=== PATIENT | male | born 1950 | race Caucasian/White ===

== ENCOUNTER 2019-10-20 07:56 | Observation (INO) ==
[2019-10-20] MEDS ORDERED: Ondansetron 4 MG/2 ML VIAL IVP ONE (08:26)
[2019-10-20] MEDS ORDERED: GI Cocktail 40 ML EACH PO ONE (09:03)
[2019-10-20 09:08] LABS: Red Cell Distribution Width 15.3 % (11.5-14.5)
[2019-10-20 09:09] LABS: Hematocrit 21.5 % (37.5-50.1); Hemoglobin 7.2 g/dL (12.9-16.9); Lymphocytes # 0.6 K/mcL (0.6-4.6); Mean Corpuscular HGB Conc 33.5 g/dL (31.6-35.5); Mean Corpuscular Hemoglobin 30.9 pg (28.0-33.3); Mean Corpuscular Volume 92.3 fL (83.0-100.0); Mean Platelet Volume 9.6 fL (9.4-12.4); Monocytes # 0.1 K/mcL (0.0-1.3); Platelet Count 223 K/mcL (140-400); Red Blood Count 2.33 M/mcL (4.19-5.50)
[2019-10-20 09:16] LABS: White Blood Count 0.8 K/mcL (4.3-11.1)
[2019-10-20 09:20] LABS: INR 1.2; Prothrombin Time 13.6 Seconds (9.4-12.1)
[2019-10-20 09:23] LABS: Activated Partial Thrombo Time 41.5 Seconds (26.0-36.0)
[2019-10-20 09:39] LABS: Albumin 2.9 g/dL (3.5-5.7); Albumin/Globulin Ratio 0.8 (1.1-2.2); Bilirubin,Direct 0.2 mg/dL (0.0-0.2); Bilirubin,Indirect 0.3 mg/dL (0.0-1.0); Bilirubin,Total 0.5 mg/dL (0.3-1.0); Globulin 3.6 g/dL (2.4-3.5); Total Protein 6.5 g/dL (6.4-8.9)
[2019-10-20 09:43] LABS: BUN/Creatinine Ratio 13 (6-26); Blood Urea Nitrogen 9 mg/dL (8-23); Calcium 8.9 mg/dL (8.6-10.3); Carbon Dioxide 24 mEq/L (23-29); Chloride 96 mEq/L (98-107); Glucose 137 mg/dL (70-105); Osmolality,Calculated 273 (280-300); Potassium 3.2 mEq/L (3.5-5.1); Sodium 131 mEq/L (136-145); Troponin I < 0.03 ng/mL (< 0.04); eGFR For African Americans > 60 (> 60); eGFR For Non-African Americans > 60 (> 60)
[2019-10-20 09:48] LABS: Neutrophils # 0.2 K/mcL (1.6-8.9)
[2019-10-20 09:49] LABS: Anisocytosis 1+ (Not Present); Microcytosis Present (Not Present); Platelet Estimate Normal (Normal)
[2019-10-20] MEDS ORDERED: 0.9 % Sodium Chloride 250 ML ONE (11:25)
[2019-10-20] MEDS ORDERED: *HR* Promethazine 25 MG/ML VIAL IVP PRN (13:21)
[2019-10-20] MEDS ORDERED: *HR* OxyCODONE/APAP 5/325 TABLET PO PRN (13:22)
[2019-10-20] MEDS ORDERED: Ondansetron 4 MG/2 ML VIAL IVP PRN (13:22)
[2019-10-20] MEDS ORDERED: Aspirin 325 MG TABLET PO ONE (13:59)
[2019-10-20] MEDS: Pantoprazole 40 MG VIAL IVP SCH (15:02)
[2019-10-20] MEDS: 0.9 % Sodium Chloride 1,000 ML IVC SCH ×2 (15:04→23:51)
[2019-10-20 17:36] LABS: % Iron Saturation 9 % (20-55); Iron 20 mcg/dL (65-175); Transferrin 155 mg/dL (203-362)
[2019-10-20 18:01] LABS: Folate 19.3 ng/mL (3.0-16.0)
[2019-10-21 01:27] LABS: Adenovirus Not Detected (Not Detect); Bordetella Pertussis Not Detected (Not Detect); Chlamydophila pneumoniae Not Detected (Not Detect); Coronavirus 229E Not Detected (Not Detect); Coronavirus HKU1 Not Detected (Not Detect); Coronavirus NL63 Not Detected (Not Detect); Coronavirus OC43 Not Detected (Not Detect); Human Metapneumovirus Not Detected (Not Detect); Human Rhinovirus/Enterovirus Not Detected (Not Detect); Influenza A Subtype 2009 H1 Not Detected (Not Detect); Influenza B Not Detected (Not Detect); Mycoplasma pneumoniae Not Detected (Not Detect); Parainfluenza Virus 1 Not Detected (Not Detect); Parainfluenza Virus 2 Not Detected (Not Detect); Parainfluenza Virus 3 Not Detected (Not Detect); Parainfluenza Virus 4 Not Detected (Not Detect); Respiratory Syncytial Virus Not Detected (Not Detect)
[2019-10-21 04:56] LABS: Mean Platelet Volume 9.8 fL (9.4-12.4); Red Cell Distribution Width 17.6 % (11.5-14.5); White Blood Count 1.1 K/mcL (4.3-11.1)
[2019-10-21 04:57] LABS: Basophils % 0.9 %; Eosinophils % 3.6 %; Hematocrit 22.6 % (37.5-50.1); Hemoglobin 7.2 g/dL (12.9-16.9); Lymphocytes # 0.7 K/mcL (0.6-4.6); Lymphocytes % 60.7 %; Mean Corpuscular HGB Conc 31.9 g/dL (31.6-35.5); Mean Corpuscular Hemoglobin 29.5 pg (28.0-33.3); Mean Corpuscular Volume 92.6 fL (83.0-100.0); Monocytes # 0.1 K/mcL (0.0-1.3); Monocytes % 9.8 %; Neutrophils # 0.3 K/mcL (1.6-8.9); Platelet Count 148 K/mcL (140-400); Red Blood Count 2.44 M/mcL (4.19-5.50)
[2019-10-21 05:14] LABS: BUN/Creatinine Ratio 12 (6-26); Blood Urea Nitrogen 8 mg/dL (8-23); Calcium 8.2 mg/dL (8.6-10.3); Carbon Dioxide 22 mEq/L (23-29); Chloride 106 mEq/L (98-107); Glucose 93 mg/dL (70-105); Osmolality,Calculated 278 (280-300); Potassium 3.6 mEq/L (3.5-5.1); Sodium 135 mEq/L (136-145); eGFR For African Americans > 60 (> 60); eGFR For Non-African Americans > 60 (> 60)
[2019-10-21 05:19] LABS: Anisocytosis 1+ (Not Present); Microcytosis Present (Not Present); Poikilocytosis 1+ (Not Present); Polychromasia 1+ (Not Present)
[2019-10-21 05:20] LABS: Platelet Estimate Normal (Normal)
[2019-10-21] MEDS: Pantoprazole 40 MG VIAL IVP SCH (06:01)
[2019-10-21 07:01] VITALS: BP 99/60
[2019-10-21] MEDS ORDERED: Aspirin 81 MG TAB.CHEW PO SCH (09:00)
== END 2019-10-21 11:20 | disposition home or self-care (01) ==
LOC: EMEROOARM 07:56 → 3BNU 07:56 → SUATTDRO 10:30 → 3BNU 12:29
PROVIDERS: ADMIT Internal Medicine; ATTEND Internal Medicine

== ENCOUNTER 2019-11-08 23:35 | Inpatient (IN) ==
[2019-11-09 00:40] LABS: Hematocrit 31.8 % (37.5-50.1); Hemoglobin 10.5 g/dL (12.9-16.9); Mean Corpuscular Volume 87.8 fL (83.0-100.0); Mean Platelet Volume 10.7 fL (9.4-12.4); Platelet Count 269 K/mcL (140-400); Red Blood Count 3.62 M/mcL (4.19-5.50); Red Cell Distribution Width 17.9 % (11.5-14.5); White Blood Count 6.1 K/mcL (4.3-11.1)
[2019-11-09] MEDS ORDERED: Isovue-370 500 ML BOTTLE IVP ONE (00:55)
[2019-11-09 00:56] LABS: Alanine Aminotransferase 7 Units/L (7-52); Albumin 2.3 g/dL (3.5-5.7); Albumin/Globulin Ratio 0.7 (1.1-2.2); Alkaline Phosphatase 126 Units/L (34-104); Aspartate Amino Transferase 8 Units/L (13-39); BUN/Creatinine Ratio 46 (6-26); Bilirubin,Total 0.5 mg/dL (0.3-1.0); Blood Urea Nitrogen 46 mg/dL (8-23); Calcium 8.2 mg/dL (8.6-10.3); Carbon Dioxide 18 mEq/L (23-29); Chloride 92 mEq/L (98-107); Globulin 3.3 g/dL (2.4-3.5); Glucose 129 mg/dL (70-105); Osmolality,Calculated 272 (280-300); Potassium 3.7 mEq/L (3.5-5.1); Sodium 124 mEq/L (136-145); Total Protein 5.6 g/dL (6.4-8.9); eGFR For African Americans > 60 (> 60); eGFR For Non-African Americans > 60 (> 60)
[2019-11-09] MEDS ORDERED: 0.9 % Sodium Chloride 1,000 ML IVC ONE (00:57)
[2019-11-09 01:22] LABS: Bilirubin,Urine Small (Negative); Blood,Urine Negative (Negative); Clarity,Urine Clear (Clear); Color,Urine Red (Yellow); Glucose,Urine (UA) Normal (Normal); Ketones,Urine Trace mg/dL (Negative); Leukocyte Esterase,Urine Trace (Negative); Nitrite,Urine Negative (Negative); PH,Urine 5.5 pH Units (5.0-8.0); Protein,Urine 30 mg/dL (Neg-Trace); Specific Gravity,Urine 1.026 (1.010-1.025); Urobilinogen,Urine Normal (Normal)
[2019-11-09 01:23] LABS: Bacteria,Urine None Seen per hpf (None-Few); Hyaline Casts,Urine None Seen per lpf (None-Few); Squamous Epithelial Cell,Urine Moderate per lpf (None-Few); WBC,Urine 0-3 per hpf (0-3)
[2019-11-09 01:28] LABS: Anisocytosis 1+ (Not Present); Large Platelets Present (Not Present); Lymphocytes # 2.4 K/mcL (0.6-4.6); Neutrophils # 3.7 K/mcL (1.6-8.9); Platelet Estimate Normal (Normal); Reactive Lymphocytes Present (Not Present)
[2019-11-09 06:44] LABS: BUN/Creatinine Ratio 48 (6-26); Blood Urea Nitrogen 43 mg/dL (8-23); Calcium 7.7 mg/dL (8.6-10.3); Carbon Dioxide 17 mEq/L (23-29); Chloride 95 mEq/L (98-107); Glucose 137 mg/dL (70-105); Osmolality,Calculated 275 (280-300); Potassium 3.6 mEq/L (3.5-5.1); Sodium 126 mEq/L (136-145); eGFR For African Americans > 60 (> 60); eGFR For Non-African Americans > 60 (> 60)
[2019-11-09] MEDS ORDERED: Naloxone 0.4 MG/ML INJ IVP PRN (07:18)
[2019-11-09] MEDS ORDERED: Ondansetron 4 MG/2 ML VIAL IVP PRN (07:18)
[2019-11-09] MEDS ORDERED: 0.9 % Sodium Chloride 1,000 ML IVC SCH ×2 (07:30→12:58)
[2019-11-09 07:50] LABS: Troponin I < 0.03 ng/mL (< 0.04)
[2019-11-09] MEDS ORDERED: Potassium Chloride 40 MEQ, Lidocaine 1% 2 ML in 0.9 % Sodium Chloride 500 ML IVPB ONE (08:46)
[2019-11-09] MEDS ORDERED: Ketorolac 15 MG/ML VIAL IVP PRN (08:47)
[2019-11-09 10:18] LABS: Creatinine,Urine 72 mg/dL; Sodium, Urine < 10.0 mEq/L
[2019-11-09 12:25] LABS: BUN/Creatinine Ratio 45 (6-26); Blood Urea Nitrogen 39 mg/dL (8-23); Calcium 7.5 mg/dL (8.6-10.3); Carbon Dioxide 15 mEq/L (23-29); Chloride 99 mEq/L (98-107); Glucose 145 mg/dL (70-105); Magnesium 1.4 mg/dL (1.6-2.6); Osmolality,Calculated 280 (280-300); Potassium 4.3 mEq/L (3.5-5.1); Sodium 129 mEq/L (136-145); eGFR For African Americans > 60 (> 60); eGFR For Non-African Americans > 60 (> 60)
[2019-11-09 16:52] LABS: BUN/Creatinine Ratio 48 (6-26); Blood Urea Nitrogen 39 mg/dL (8-23); Calcium 7.6 mg/dL (8.6-10.3); Carbon Dioxide 15 mEq/L (23-29); Chloride 101 mEq/L (98-107); Glucose 170 mg/dL (70-105); Osmolality,Calculated 283 (280-300); Potassium 4.3 mEq/L (3.5-5.1); Sodium 130 mEq/L (136-145); eGFR For African Americans > 60 (> 60); eGFR For Non-African Americans > 60 (> 60)
[2019-11-09] MEDS: *HR* Heparin 5,000 UNIT/ML VIAL SQ SCH (17:29)
[2019-11-09] MEDS ORDERED: D5% in 0.45% NACL 1,000 ML IVC SCH (17:45)
[2019-11-09 20:15] LABS: BUN/Creatinine Ratio 45 (6-26); Blood Urea Nitrogen 37 mg/dL (8-23); Calcium 7.6 mg/dL (8.6-10.3); Carbon Dioxide 14 mEq/L (23-29); Chloride 101 mEq/L (98-107); Glucose 216 mg/dL (70-105); Osmolality,Calculated 289 (280-300); Potassium 4.1 mEq/L (3.5-5.1); Sodium 132 mEq/L (136-145); eGFR For African Americans > 60 (> 60); eGFR For Non-African Americans > 60 (> 60)
[2019-11-10 01:05] LABS: BUN/Creatinine Ratio 44 (6-26); Blood Urea Nitrogen 39 mg/dL (8-23); Calcium 7.5 mg/dL (8.6-10.3); Carbon Dioxide 17 mEq/L (23-29); Chloride 103 mEq/L (98-107); Glucose 210 mg/dL (70-105); Magnesium 2.3 mg/dL (1.6-2.6); Osmolality,Calculated 292 (280-300); Phosphorous 1.8 mg/dL (2.7-4.5); Potassium 3.7 mEq/L (3.5-5.1); Sodium 133 mEq/L (136-145); eGFR For African Americans > 60 (> 60); eGFR For Non-African Americans > 60 (> 60)
[2019-11-10] MEDS ORDERED: *HR* LORazepam 2 MG/ML VIAL IVP ONE ×2 (02:29→12:30)
[2019-11-10 05:07] LABS: Basophils # 0.1 K/mcL (0.0-0.2); Basophils % 1.3 %; Eosinophils % 0.2 %; Hemoglobin 9.6 g/dL (12.9-16.9); Immature Granulocytes % 9.8 % (0-4); Lymphocytes # 1.3 K/mcL (0.6-4.6); Lymphocytes % 21.1 %; Mean Corpuscular Hemoglobin 29.1 pg (28.0-33.3); Mean Corpuscular Volume 90.9 fL (83.0-100.0); Mean Platelet Volume 10.8 fL (9.4-12.4); Monocytes # 0.9 K/mcL (0.0-1.3); Neutrophils # 3.3 K/mcL (1.6-8.9); Platelet Count 309 K/mcL (140-400); Red Cell Distribution Width 18.5 % (11.5-14.5); Segmented Neutrophils % 52.6 %; White Blood Count 6.2 K/mcL (4.3-11.1)
[2019-11-10 05:25] LABS: BUN/Creatinine Ratio 46 (6-26); Blood Urea Nitrogen 41 mg/dL (8-23); Calcium 7.4 mg/dL (8.6-10.3); Carbon Dioxide 19 mEq/L (23-29); Chloride 105 mEq/L (98-107); Glucose 178 mg/dL (70-105); Osmolality,Calculated 293 (280-300); Potassium 3.6 mEq/L (3.5-5.1); Sodium 134 mEq/L (136-145); eGFR For African Americans > 60 (> 60); eGFR For Non-African Americans > 60 (> 60)
[2019-11-10] MEDS: *HR* Heparin 5,000 UNIT/ML VIAL SQ SCH ×2 (05:39→22:50)
[2019-11-10 06:07] LABS: Anisocytosis 1+ (Not Present); Platelet Estimate Normal (Normal); Poikilocytosis 1+ (Not Present); Reactive Lymphocytes Present (Not Present)
[2019-11-10 08:45] LABS: Bilirubin,Urine Small (Negative); Blood,Urine Negative (Negative); Clarity,Urine Clear (Clear); Color,Urine Dark Yellow (Yellow); Glucose,Urine (UA) Normal (Normal); Ketones,Urine 15 mg/dL (Negative); Leukocyte Esterase,Urine Trace (Negative); Nitrite,Urine Negative (Negative); PH,Urine 5.5 pH Units (5.0-8.0); Protein,Urine 30 mg/dL (Neg-Trace); Specific Gravity,Urine > 1.030 (1.010-1.025); Urobilinogen,Urine Normal (Normal)
[2019-11-10 08:47] LABS: Bacteria,Urine None Seen per hpf (None-Few); Hyaline Casts,Urine None Seen per lpf (None-Few); Squamous Epithelial Cell,Urine Many per lpf (None-Few); WBC,Urine 0-3 per hpf (0-3)
[2019-11-10 08:49] LABS: BUN/Creatinine Ratio 49 (6-26); Blood Urea Nitrogen 42 mg/dL (8-23); Calcium 7.2 mg/dL (8.6-10.3); Carbon Dioxide 19 mEq/L (23-29); Chloride 106 mEq/L (98-107); Glucose 177 mg/dL (70-105); Osmolality,Calculated 293 (280-300); Potassium 3.4 mEq/L (3.5-5.1); Sodium 134 mEq/L (136-145); eGFR For African Americans > 60 (> 60); eGFR For Non-African Americans > 60 (> 60)
[2019-11-10] MEDS ORDERED: Ringers Solution, Lactated 1,000 ML IVC SCH (10:30)
[2019-11-10] MEDS: Ringers Solution, Lactated 1,000 ML IVC SCH (11:28)
[2019-11-10] MEDS ORDERED: Pantoprazole 40 MG VIAL IVP SCH (11:30)
[2019-11-10] MEDS ORDERED: Lidocaine -MPF 1% 5 ML AMPUL INFILT ONE (11:43)
[2019-11-10] MEDS ORDERED: D10% in Water 500 ML IVC PRN (12:17)
[2019-11-10] MEDS ORDERED: Haloperidol Lactate 5 MG/ML VIAL IVP PRN (12:24)
[2019-11-10] MEDS ORDERED: *HR* Dextrose 50 % in Water (Syg) 50 ML SYRINGE IVP PRN (12:44)
[2019-11-10] MEDS ORDERED: D5% in Water 1,000 ML IVC PRN (12:44)
[2019-11-10] MEDS ORDERED: Dextrose Gel 15 GM/37.5 ML TUBE PO PRN ×2 (12:44)
[2019-11-10] MEDS ORDERED: Clinimix E 5%-15% SOLUTION 2,000 ML with MVI, adult with vitamin K 10 ML IVC SCH (17:00)
[2019-11-10] MEDS: Insulin LISPRO 300 UNITS/3 ML VIAL SQ SCH ×2 (18:27→22:46)
[2019-11-10] MEDS ORDERED: Lidocaine -MPF 2% 2 ML VIAL ONE (22:20)
[2019-11-10] MEDS ORDERED: *HR* Succinylcholine 200 MG/10 ML VIAL IVP ONE (22:20)
[2019-11-10] MEDS ORDERED: *HR* FentaNYL (PF) 100 MCG/2 ML VIAL ONE (22:20)
[2019-11-10] MEDS ORDERED: *HR* Rocuronium Bromide 50 MG/5 ML VIAL ONE (22:20)
[2019-11-11] MEDS ORDERED: *HR* Etomidate 40 MG/20 ML VIAL IVP ONE (00:05)
[2019-11-11] MEDS ORDERED: *HR* PHENYLEPHRINE 1,000 MCG/10 ML SYRINGE IVP ONE (00:14)
[2019-11-11] MEDS ORDERED: ceFAZolin 2,000 MG in 0.9 % Sodium Chloride 100 ML IVPB ONE ×2 (00:49→02:15)
[2019-11-11] MEDS ORDERED: *HR* HYDROmorphone (PF) 1 MG/ML SYRINGE IVP PRN (01:05)
[2019-11-11] MEDS ORDERED: *HR* Promethazine 25 MG/ML VIAL IVP PRN (01:05)
[2019-11-11] MEDS: Insulin LISPRO 300 UNITS/3 ML VIAL SQ SCH ×6 (02:10→21:46)
[2019-11-11] MEDS ORDERED: D5% in Water 1,000 ML IVC PRN (02:15)
[2019-11-11] MEDS ORDERED: D10% in Water 500 ML IVC PRN (02:15)
[2019-11-11] MEDS ORDERED: Clinimix E 5%-15% SOLUTION 2,000 ML with MVI, adult with vitamin K 10 ML IVC SCH (02:15)
[2019-11-11] MEDS ORDERED: Naloxone 0.4 MG/ML INJ IVP PRN (02:15)
[2019-11-11] MEDS ORDERED: *HR* Dextrose 50 % in Water (Syg) 50 ML SYRINGE IVP PRN (02:15)
[2019-11-11] MEDS ORDERED: Dextrose Gel 15 GM/37.5 ML TUBE PO PRN ×2 (02:15)
[2019-11-11] MEDS ORDERED: Ondansetron 4 MG/2 ML VIAL IVP PRN (02:15)
[2019-11-11] MEDS: Ringers Solution, Lactated 1,000 ML IVC SCH ×3 (02:59→16:15)
[2019-11-11 04:25] LABS: Hematocrit 27.6 % (37.5-50.1); Hemoglobin 8.8 g/dL (12.9-16.9); Mean Corpuscular HGB Conc 31.9 g/dL (31.6-35.5); Mean Corpuscular Hemoglobin 29.1 pg (28.0-33.3); Mean Corpuscular Volume 91.4 fL (83.0-100.0); Mean Platelet Volume 10.3 fL (9.4-12.4); Monocytes # 0.6 K/mcL (0.0-1.3); Nucleated Red Blood Cells 0.9 /100 WBC (0); Platelet Count 258 K/mcL (140-400); Red Blood Count 3.02 M/mcL (4.19-5.50); Red Cell Distribution Width 18.5 % (11.5-14.5); White Blood Count 5.6 K/mcL (4.3-11.1)
[2019-11-11 04:32] LABS: BUN/Creatinine Ratio 51 (6-26); Blood Urea Nitrogen 39 mg/dL (8-23); Calcium 7.4 mg/dL (8.6-10.3); Carbon Dioxide 20 mEq/L (23-29); Chloride 111 mEq/L (98-107); Glucose 211 mg/dL (70-105); Magnesium 1.6 mg/dL (1.6-2.6); Osmolality,Calculated 304 (280-300); Phosphorous 1.6 mg/dL (2.7-4.5); Potassium 3.6 mEq/L (3.5-5.1); Sodium 139 mEq/L (136-145); eGFR For African Americans > 60 (> 60); eGFR For Non-African Americans > 60 (> 60)
[2019-11-11 06:00] LABS: Anisocytosis 1+ (Not Present); Lymphocytes # 0.5 K/mcL (0.6-4.6); Microcytosis Present (Not Present); Neutrophils # 4.3 K/mcL (1.6-8.9); Platelet Estimate Normal (Normal)
[2019-11-11] MEDS: Pantoprazole 40 MG VIAL IVP SCH (06:23)
[2019-11-11] MEDS ORDERED: 0.9 % Sodium Chloride 500 ML IVC ONE (06:23)
[2019-11-11] MEDS: Thiamine (B-1) 100 MG in 0.9 % Sodium Chloride 50 ML IVPB SCH (12:55)
[2019-11-11 14:57] LABS: BUN/Creatinine Ratio 58 (6-26); Blood Urea Nitrogen 38 mg/dL (8-23); Calcium 7.1 mg/dL (8.6-10.3); Carbon Dioxide 20 mEq/L (23-29); Chloride 115 mEq/L (98-107); Glucose 183 mg/dL (70-105); Magnesium 2.1 mg/dL (1.6-2.6); Osmolality,Calculated 306 (280-300); Phosphorous 3.2 mg/dL (2.7-4.5); Potassium 4.1 mEq/L (3.5-5.1); Sodium 141 mEq/L (136-145); eGFR For African Americans > 60 (> 60); eGFR For Non-African Americans > 60 (> 60)
[2019-11-11] MEDS ORDERED: Clinimix E 5%-15% SOLUTION 2,000 ML with MVI, adult with vitamin K 10 ML, Trace Eleme... IVC SCH (17:00)
[2019-11-12] MEDS: Insulin LISPRO 300 UNITS/3 ML VIAL SQ SCH ×5 (01:05→16:43)
[2019-11-12] MEDS ORDERED: *HR* Promethazine 25 MG/ML VIAL IVP ONE (02:11)
[2019-11-12 04:55] LABS: Hematocrit 27.2 % (37.5-50.1); Hemoglobin 8.5 g/dL (12.9-16.9); Mean Corpuscular HGB Conc 31.3 g/dL (31.6-35.5); Mean Corpuscular Hemoglobin 29.1 pg (28.0-33.3); Mean Corpuscular Volume 93.2 fL (83.0-100.0); Mean Platelet Volume 10.8 fL (9.4-12.4); Nucleated Red Blood Cells 0.9 /100 WBC (0); Platelet Count 205 K/mcL (140-400); Red Blood Count 2.92 M/mcL (4.19-5.50); Red Cell Distribution Width 18.8 % (11.5-14.5); White Blood Count 6.8 K/mcL (4.3-11.1)
[2019-11-12 05:17] LABS: BUN/Creatinine Ratio 59 (6-26); Blood Urea Nitrogen 33 mg/dL (8-23); Carbon Dioxide 22 mEq/L (23-29); Chloride 116 mEq/L (98-107); Glucose 176 mg/dL (70-105); Magnesium 1.6 mg/dL (1.6-2.6); Osmolality,Calculated 306 (280-300); Potassium 3.9 mEq/L (3.5-5.1); Sodium 142 mEq/L (136-145); eGFR For African Americans > 60 (> 60); eGFR For Non-African Americans > 60 (> 60)
[2019-11-12] MEDS: Ringers Solution, Lactated 1,000 ML IVC SCH (05:39)
[2019-11-12] MEDS: Pantoprazole 40 MG VIAL IVP SCH (05:39)
[2019-11-12 05:41] LABS: Anisocytosis 1+ (Not Present); Monocytes # 0.3 K/mcL (0.0-1.3); Neutrophils # 5.6 K/mcL (1.6-8.9); Platelet Estimate Normal (Normal)
[2019-11-12] MEDS ORDERED: Calcium Gluconate 1gm/50mL 1 GM/50 ML BAG IVPB ONE (09:01)
[2019-11-12] MEDS ORDERED: methylPREDNISolone 125 MG/2 ML VIAL IVP ONE (09:05)
[2019-11-12] MEDS: Thiamine (B-1) 100 MG in 0.9 % Sodium Chloride 50 ML IVPB SCH (10:12)
[2019-11-12 10:17] LABS: VBG Ionized Calcium 1.14 mmol/L (1.15-1.35)
[2019-11-12 11:10] LABS: Estimated Average Glucose 123 mg/dl
[2019-11-12] MEDS ORDERED: Potassium Phosphate 44 MEQ in 0.9 % Sodium Chloride 250 ML IVPB ONE (11:19)
[2019-11-12] MEDS ORDERED: Clinimix E 5%-15% SOLUTION 2,000 ML with MVI, adult with vitamin K 10 ML, Trace Eleme... IVC SCH (17:00)
[2019-11-12] MEDS ORDERED: *HR* Metoprolol 5 MG/5 ML VIAL IVP ONE (23:21)
[2019-11-13] MEDS: Calcium Gluconate 1gm/50mL 1 GM/50 ML BAG IVPB SCH ×3 (01:00→02:15)
[2019-11-13] MEDS: Insulin LISPRO 300 UNITS/3 ML VIAL SQ SCH ×4 (04:05→10:11)
[2019-11-13] MEDS: Pantoprazole 40 MG VIAL IVP SCH (08:11)
[2019-11-13] MEDS: Thiamine (B-1) 100 MG in 0.9 % Sodium Chloride 50 ML IVPB SCH (09:01)
[2019-11-13 09:16] LABS: BUN/Creatinine Ratio 43 (6-26); Blood Urea Nitrogen 27 mg/dL (8-23); Calcium 7.8 mg/dL (8.6-10.3); Carbon Dioxide 20 mEq/L (23-29); Chloride 115 mEq/L (98-107); Glucose 687 mg/dL (70-105); Magnesium 1.6 mg/dL (1.6-2.6); Osmolality,Calculated 328 (280-300); Phosphorous 5.3 mg/dL (2.7-4.5); Potassium 4.8 mEq/L (3.5-5.1); Sodium 140 mEq/L (136-145); eGFR For African Americans > 60 (> 60); eGFR For Non-African Americans > 60 (> 60)
[2019-11-13] MEDS ORDERED: Clinimix E 5%-15% SOLUTION 2,000 ML with MVI, adult with vitamin K 10 ML, Trace Eleme... IVC SCH (11:00)
[2019-11-13 11:05] LABS: BUN/Creatinine Ratio 48 (6-26); Blood Urea Nitrogen 28 mg/dL (8-23); Calcium 7.7 mg/dL (8.6-10.3); Carbon Dioxide 21 mEq/L (23-29); Chloride 119 mEq/L (98-107); Glucose 152 mg/dL (70-105); Magnesium 1.4 mg/dL (1.6-2.6); Osmolality,Calculated 312 (280-300); Phosphorous 3.5 mg/dL (2.7-4.5); Potassium 3.6 mEq/L (3.5-5.1); Sodium 147 mEq/L (136-145); eGFR For African Americans > 60 (> 60); eGFR For Non-African Americans > 60 (> 60)
[2019-11-14] MEDS ORDERED: *HR* Promethazine 25 MG/ML VIAL IVP ONE (02:06)
[2019-11-14] MEDS ORDERED: Prochlorperazine 10 MG/2 ML VIAL IVP PRN (06:29)
[2019-11-14] MEDS ORDERED: Scopolamine Patch 1.5 MG PATCH.TD72 TD SCH (07:00)
[2019-11-14 14:50] VITALS: BP 94/67
== END 2019-11-14 16:49 | disposition hospice, inpatient (51) ==
LOC: EMEROOARM 23:35 → 3ANU 23:35 → SUATTDRO 11-09 04:26 → 3ANU 11-09 04:48 → 2ANU 11-14 16:36
PROVIDERS: ADMIT Family Medicine; ATTEND Internal Medicine

== ENCOUNTER 2019-11-14 11:42 | Inpatient (IN) ==
[2019-11-14] MEDS: Ondansetron ODT 4 MG TAB.RAPDIS SL SCH (18:04)
[2019-11-14] MEDS: Morphine Sulfate Oral CONC 10 MG/0.5 ML ORAL.SYG PO PRN (21:45)
[2019-11-15] MEDS: Morphine Sulfate Oral CONC 10 MG/0.5 ML ORAL.SYG PO PRN ×4 (01:59→22:06)
[2019-11-15] MEDS: Haloperidol Oral Conc 10 MG/5 ML UDC PO PRN ×4 (01:59→22:06)
[2019-11-15] MEDS: Ondansetron ODT 4 MG TAB.RAPDIS SL SCH ×3 (07:50→17:26)
[2019-11-15] MEDS: Sennosides/Docusate Sodium TABLET PO SCH (07:50)
[2019-11-15] MEDS ORDERED: *HR* LORazepam Oral Conc 2 MG/ML PO PRN (14:17)
[2019-11-15] MEDS: *HR* LORazepam Oral Conc 2 MG/ML PO PRN (17:26)
[2019-11-16] MEDS: Haloperidol Oral Conc 10 MG/5 ML UDC PO PRN ×6 (00:21→18:36)
[2019-11-16] MEDS: *HR* LORazepam Oral Conc 2 MG/ML PO PRN ×2 (02:26→15:23)
[2019-11-16] MEDS: Morphine Sulfate Oral CONC 10 MG/0.5 ML ORAL.SYG PO PRN ×3 (02:27→13:45)
[2019-11-16] MEDS ORDERED: Scopolamine Patch 1.5 MG PATCH.TD72 TD SCH (09:00)
[2019-11-16] MEDS: Sennosides/Docusate Sodium TABLET PO SCH ×2 (09:39→11:32)
[2019-11-16] MEDS: Ondansetron ODT 4 MG TAB.RAPDIS SL SCH ×4 (09:39→18:35)
[2019-11-17] MEDS: Haloperidol Oral Conc 10 MG/5 ML UDC PO PRN ×9 (01:10→21:43)
[2019-11-17] MEDS: Morphine Sulfate Oral CONC 10 MG/0.5 ML ORAL.SYG PO PRN ×7 (01:10→21:43)
[2019-11-17] MEDS: *HR* LORazepam Oral Conc 2 MG/ML PO PRN ×6 (08:25→21:44)
[2019-11-17] MEDS: Sennosides/Docusate Sodium TABLET PO SCH (08:27)
[2019-11-17] MEDS: Ondansetron ODT 4 MG TAB.RAPDIS SL SCH ×3 (08:27→16:58)
[2019-11-17 20:59] VITALS: BP 64/33
== END 2019-11-18 00:04 | disposition expired | DRG 951 ==
LOC: 2ANU 16:55
PROVIDERS: ADMIT Internal Medicine Hospice and Palliative Medicine; ATTEND Internal Medicine Hospice and Palliative Medicine